=== PATIENT | female | born 2000 | race African-American/Black ===

== ENCOUNTER 2020-08-18 14:11 | Emergency (ER) | payer OTHER, SELFPAY ==
--- NOTE | ~2020-08-18 | XR_ITS ---
EXAMINATION: XR ankle RT min 3V DATE: 08/18/2020 14:32 INDICATION: Right ankle pain post twisting injury 4 days prior TECHNIQUE: Anteroposterior, oblique, mortise, and lateral views of the right ankle were obtained. COMPARISON: None. FINDINGS: Bone alignment is normal. No acute fracture. Lucent osteochondral lesion at the medial side of the ta lar dome with central more dense likely chronic loose in situ osteochondral fragment with smooth roun ded margins. Joint spaces are relatively preserved. 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 Mild diffuse soft tissue swell ing about the ankle both medially and to lesser degree laterally. IMPRESSION: 1. Likely chronic osteochondral lesion at the medial talar dome with suggestion of loose fragment in situ. No acute osseous abnormality. 2. 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 Reviewed, dictated and finalized at location A. IMPRESSION: 1. Likely chronic osteochondral lesion at the medial talar dome with suggestion of loose fragment in situ. No acute osseous abnormality. 2. Heterotopic ossification suggestive of chronic trauma to the anterior talofi bular ligament.
[2020-08-18 14:19] VITALS: BP 172/117; PULSE 94; RESP 12; TEMP 37; O2SAT 100
--- NOTE | 2020-08-18 14:28 | ED.LOWEXIN ---
HPI - Extremity Injury (Lower) General Chief Complaint: Extremity Injury, Lower Stated Complaint: INJURED R ANKLE Time Seen by Provider: 08/18/20 14:28 Source: patient and RN notes reviewed Mode of arrival: ambulatory Limitations: no limitations History of Present Illness HPI Narrative: 19-year-old female presents to the urgent care with complaints of right ankle pain since Monday,4 days ago. States that she was walking down steps and missed one and roller her ankle, believes inversely. States the pain and better today then yesterday but wanted to get it checked. HX if ankle injuries, played volleyball. Pain is generalized. No swelling or bruising noted compared to the opposite ankle. No point tenderness. walks with a limp favoring the right ankle. Wear crocks. Related Data Allergies Allergy/AdvReac Type Severity Reaction Status Date / Time No Known Allergies Allergy Verified 08/18/20 14:32 Review of Systems Review of Systems: All systems reviewed & are unremarkable except as noted in HPI and below Constitutional: Constitutional: Reports no additional constitutional complaints Eyes: Eyes: Reports no additional eye complaints ENT: Reports system reviewed and no additional complaints, except as documented Cardiovascular: Cardiovascular: Reports no additional cardiovascular complaints and Denies chest pain Respiratory: Respiratory: Reports no additional respiratory complaints, Denies cough and Denies dyspnea Gastrointestinal: Gastrointestinal: Reports no additional gastrointestinal complaints and Denies abdominal pain Musculoskeletal: Musculoskeletal: Reports as per HPI, Reports arthralgias (right ankle generalized) and Reports joint swelling (right ankle) Integumentary/Breasts: Skin/Breast: Reports system reviewed and no additional complaints, except as docu and Denies rash Neurologic: Reports system reviewed and no additional complaints, except as documented, Denies dizziness, Denies syncope, Denies focal weakness, Denies numbness and Denies weakness Psychiatric: Psychiatric: Reports no additional psychiatric complaints [facility] Past Medical History Medical History Hypertension Comments At the time of my signature, I reviewed and agree with the nursing past medical, surgical, social, and family history. There is no relevant family history pertinent to the patient complaint. Exam Const: General: healthy appearing, no acute distress and alert Nutritional Appearance: obese morbidly obese Orientation/consciousness: patient oriented x3 Limitations: no limitations HENMT: Head: normal to inspection Neck: Neck: normal visual inspection Chest: Chest palpation & inspection: normal inspection of the chest Resp: Effort & Inspection: normal respiratory effort and no use of accessory muscles Auscultation: clear to auscultation bilaterally, no crackles, no rales, no rhonchi and no wheezes Cardio: Rate: regular rate Rhythm: regular rhythm Skin: General skin exam: normal color Rashes: no rashes Wounds: no wounds Neuro: General: patient oriented x3, moves all extremities, no meningeal signs and no focal motor deficits Speech: normal speech Gait exam (Neuro): Normal gait present Extrem: General: normal to inspection, capillary refill normal and normal exam except as noted Right lower extremity: ankle Details: normal to inspection, no edema and normal ROM Ankle/foot/toe images: 1. General right ankle patient complains of pain. Unable to reproduce pain. Full range of motion. Capillary refill under 2 seconds. Positive pedal pulse Psych: Appearance: grossly normal and well kempt Mental Status: mental status grossly normal Affect: normal affect Attitude: cooperative Thought content: Yes Normal thought content present Course Vital Signs Vital signs: Vital Signs Temperature 98.6 F 08/18/20 14:19 Pulse Rate 94 08/18/20 14:19 Respiratory Rate 12
[2020-08-18 15:17] VITALS: BP 162/107
== END 2020-08-18 14:52 | disposition home or self-care (01) ==
PROVIDERS: Emergency Provider Nurse Practitioner
DX: S93.401A Sprain of unspecified ligament of right ankle, initial encounter (principal); S96.911A Strain of unspecified muscle and tendon at ankle and foot level, right foot, initial encounter; X50.9XXA Other and unspecified overexertion or strenuous movements or postures, initial encounter; I10 Essential (primary) hypertension
CPT/HCPCS: 73610; 99213; G0463